=== PATIENT | female | born 1965 | race African-American/Black ===

== ENCOUNTER 2018-04-10 21:03 | Emergency (ER) | payer MEDICARE | END 2018-04-10 21:24 | disposition home or self-care (01) | LOC: ERS 21:03 | DX: M54.9 Dorsalgia, unspecified (principal); M25.551 Pain in right hip; I10 Essential (primary) hypertension; F41.9 Anxiety disorder, unspecified; F31.9 Bipolar disorder, unspecified; F17.210 Nicotine dependence, cigarettes, uncomplicated; Z79.899 Other long term (current) drug therapy; V89.2XXA Person injured in unspecified motor-vehicle accident, traffic, initial encounter | CPT/HCPCS: 99283 ==

== ENCOUNTER 2019-03-18 13:10 | Emergency (ER) | payer MEDICARE ==
[2019-03-18] MEDS ORDERED: Adacel (T-DAP) 0.5 ML SYRINGE ONE (13:43)
[2019-03-18] MEDS ORDERED: Lidocaine 1% w/Epinephrine 1:100K 20 ML VIAL ONE (13:44)
[2019-03-18] MEDS ORDERED: HYDROcodone/Acetaminophen 5/325 mg Tablet ONE (13:44)
== END 2019-03-18 15:26 | disposition home or self-care (01) ==
LOC: ERS 13:10
DX: S01.01XA Laceration without foreign body of scalp, initial encounter (principal); I10 Essential (primary) hypertension; F41.9 Anxiety disorder, unspecified; F31.9 Bipolar disorder, unspecified; F17.210 Nicotine dependence, cigarettes, uncomplicated; Z79.899 Other long term (current) drug therapy; Y04.8XXA Assault by other bodily force, initial encounter
CPT/HCPCS: 12001; 90471; 90715

== ENCOUNTER 2019-03-29 13:37 | Emergency (ER) | payer MEDICARE | END 2019-03-29 15:15 | disposition home or self-care (01) | LOC: ERS 13:37 | DX: S01.01XD Laceration without foreign body of scalp, subsequent encounter (principal); I10 Essential (primary) hypertension; F31.9 Bipolar disorder, unspecified; F41.9 Anxiety disorder, unspecified; F17.210 Nicotine dependence, cigarettes, uncomplicated ==

== ENCOUNTER 2023-07-09 12:51 | Emergency (ER) | payer MEDICARE, OTHER ==
[2023-07-09 13:48] LABS: #Eosinphils 0.2 thou/uL (0.0-0.7); #Monocytes 0.6 thou/uL (0.11-0.59); #Neutrophils 2.7 thou/uL (1.40-6.50); %Basophils 0.7 % (0.0-1.0); %Eosinophils 3.7 % (0.0-10.0); %Lymphocytes 36.2 % (21.0-51.0); %Monocytes 10.2 % (0.0-10.0); Hematocrit 37.3 % (36.0-47.0); Hemoglobin 11.8 g/dL (12.0-16.0); Mean Corpuscular HGB CONC 31.6 g/dL (32.0-36.0); Mean Corpuscular Hemoglobin 24.6 pg (27.0-31.0); Mean Corpuscular Volume 77.9 fl (78.0-98.0); Mean Platelet Volume 10.8 fL (7.4-10.4); Platelet Count 231 10x3/uL (130-400); RBC Distribution Width 13.9 % (11.5-14.5); Red Blood Cell (RBC) Count 4.79 mill/uL (4.20-5.40); White Blood Cell (WBC) Count 5.5 10x3/uL (4.8-10.8)
[2023-07-09 14:11] LABS: ALT (SGPT) 13 U/L (8-55); AST (SGOT) 20 U/L (5-34); Albumin 4.4 g/dL (3.5-5.0); Alkaline Phosphatase 65 U/L (40-110); Anion Gap 12 mmol/L (10-20); BUN (Urea Nitrogen) 6 mg/dL (9.8-20.1); Bilirubin, Total 0.5 mg/dL (0.2-1.2); Calc. Creatinine Clearance 0 mL/min (70-130); Calcium 9.4 mg/dL (7.8-10.44); Carbon Dioxide 22 mmol/L (22-29); Chloride 108 mmol/L (98-107); Estimated GFR 100; Globulin 2.8 g/dL (2.4-3.5); Glucose 94 mg/dL (70-105); Protein, Total 7.2 g/dL (6.0-8.3); Sodium 139 mmol/L (136-145)
[2023-07-09] MEDS ORDERED: predniSONE 20 MG TAB ONE (14:13)
[2023-07-09] MEDS ORDERED: Ketorolac Tromethamine 30 MG (1 mL) VIAL ONE (14:13)
[2023-07-09] MEDS ORDERED: Ipratropium/Albuterol 3 ML NEB ONE (14:15)
[2023-07-09 14:16] LABS: Troponin I Less than 0.010 ng/mL (< 0.028)
[2023-07-09] MEDS ORDERED: Potassium Bicarbonate/Cit Ac 20 MEQ TAB ONE (14:35)
[2023-07-09] MEDS ORDERED: Potassium Chloride 20 MEQ TAB ONE (14:35)
== END 2023-07-09 14:53 | disposition home or self-care (01) ==
LOC: ERS 12:51
DX: J06.9 Acute upper respiratory infection, unspecified (principal); J45.909 Unspecified asthma, uncomplicated; M79.10 Myalgia, unspecified site; I10 Essential (primary) hypertension; F17.210 Nicotine dependence, cigarettes, uncomplicated
CPT/HCPCS: 36415; 71045; 80053; 84484; 85025; 93005; 96372; J1885; J7512; J7620

== ENCOUNTER 2023-10-22 10:06 | Outpatient (CLI) | payer MEDICARE | END 2023-10-22 10:07 | disposition home or self-care (01) | LOC: EDSTATUS 14:17 | PROVIDERS: ATTEND Family Medicine | DX: M16.11 Unilateral primary osteoarthritis, right hip (principal); M21.851 Other specified acquired deformities of right thigh ==